=== PATIENT | male | born 2000 | race Caucasian/White ===

== ENCOUNTER 2022-07-24 09:50 | Emergency (ER) | payer OTHER ==
[2022-07-24 10:01] VITALS: BP 128/83
--- NOTE | 2022-07-24 11:37 | ED Physician Documentation ---
PD HPI LOWER EXT INJURY - Stated complaint Stated Complaint: INGROWN BOTH FEET - Chief complaint Chief Complaint: Ext Problem - History obtained from History obtained from: Patient - History of Present Illness PD HPI LOW EXT INJURY LOCATION: Left, Toe (great toe mainly and 3rd toe some.) Type of injury: No: Fall, Twist, Penetrating / stab / GSW Where injury occurred: Home Timing - details: Abrupt onset Improved by: Immobilization Worsened by: Moving. No: Palpating Associated symptoms: Weakness, Numbness, Swelling, Discolored (redness around left great toe nailbed and extending to dorsum of foot/great toe base.) Review of Systems Constitutional: denies: Fever, Chills, Myalgias Eyes: denies: Decreased vision, Photophobia Nose: denies: Rhinorrhea / runny nose, Congestion Throat: denies: Sore throat, Swollen tonsils Respiratory: reports: Dyspnea, Cough GI: reports: Abdominal Pain, Nausea. denies: Vomiting, Constipation, Diarrhea : denies: Dysuria, Frequency Skin: denies: Rash, Lesions PD PAST MEDICAL HISTORY - Past Medical History Cardiovascular: None - Present Medications Home Medications: Ambulatory Orders Medication Instructions Recorded Confirmed Doxycycline Hyclate 100 mg PO BID 5 Days #10 cap 07/24/22 Mupirocin 2% Oint [Bactroban 2% 1 applic TOP TID #15 gm 07/24/22 Oint] - Allergies Allergies/Adverse Reactions: Allergies Allergy/AdvReac Type Severity Reaction Status Date / Time No Known Drug Allergies Allergy Verified 07/24/22 10:01 PD ED PE NORMAL - Vitals Vital signs reviewed: Yes - General General: Alert and oriented X 3, No acute distress - Cardiac Cardiac: RRR, No murmur - Respiratory Respiratory: Clear bilaterally - Abdomen Abdomen: Soft, Non tender, Non distended - Derm Derm: Warm and dry. No: Normal color (left great toe paronychial area and top of 3rd toe baseline with redness and tenderness from prior.) Results - Vitals Vitals: Oxygen O2 Source Room air Procedures - General procedure General procedure: great toe nailbed base with redness and swelling. no drainage. Nails ingrown in corners Scissors used to trim leading corner that was toward to the infection area. Departure - Departure Disposition: 01 Home, Self Care Clinical Impression: Ingrown toenail, Paronychia Cellulitis, toe Qualifiers: Laterality: left Qualified Code(s): L03.032 - Cellulitis of left toe Condition: Stable Record reviewed to determine appropriate education?: Yes Instructions: ED Fingernail Infec Follow-Up: Paulino Doan DPM [Physician No Access] - Prescriptions: Mupirocin 2% Oint [Bactroban 2% Oint] 1 applic TOP TID #15 gm Doxycycline Hyclate 100 mg PO BID 5 Days #10 cap Comments: Wear more loose fitting shoes so there is less pressure on the toes. Soak or cleanse the infected toenails 2-3 times daily for the next several days and apply mupirocin antibiotic ointment. Antibiotics as directed. Anti-inflammatory such as ibuprofen 600 mg 3 times daily for pain. Recheck if infection is not improving well over the next few days with your primary care or a qi specialist (podiatry). There is a 1 up in [place] and I gave you the reference number. Subsequently if this heals up well then you may not necessarily need follow-up. Subsequently be sure to keep your toenails trimmed well so they are not hitting on the ends of your boot. Make sure your boot is fitting properly so your toenails are not jamming. I sent your prescription to the [email or web address] pharmacy. Forms: Activity restrictions Discharge Date/Time: 07/24/22 13:16
[2022-07-24] MEDS ORDERED: MUPIROCIN 2% OINT 1 GM TOP STA (12:20)
[2022-07-24] MEDS ORDERED: IBUPROFEN 600 MG TABLET PO STA (12:20)
[2022-07-24] MEDS ORDERED: DOXYCYCLINE 100 MG TABLET PO STA (12:20)
== END 2022-07-24 13:16 | disposition home or self-care (01) ==
LOC: ED 09:50
DX: L60.0 Ingrowing nail (principal); L03.032 Cellulitis of left toe
CPT/HCPCS: 11765; 99282; A9270

== ENCOUNTER 2024-06-06 08:53 | Outpatient (CLI) | payer OTHER ==
--- NOTE | 2024-06-07 15:31 | Ultrasound Report ---
LIMITED ULTRASOUND OF RIGHT BREAST: 06/06/2024 CLINICAL: Palpable right breast lump. No prior exams were available for comparison. Color flow ultrasound of the right breast retroareolar was performed. [place] scale images of the real- time examination were reviewed. There is mild gynecomastia in the right retroareolar region corresponding to the palpable abnormality . No suspicious mass is seen. IMPRESSION: BENIGN Mild benign gynecomastia is seen in the retroareolar region. Recommend clinical follow-up and workup for causes of gynecomastia. There is no sonographic evidence of malignancy. This exam was interpreted at Station ID: [id number]. Electronically Signed By: Chris [email or web address]:06/06/2024 16:39:13 letter sent: No_Letter ACR BI-RADS Category 2: Benign 3342F BI-RADS CATEGORY: (2) - 2 Unspecified - other recall n/a LATERALITY: (B)
== END 2024-06-06 08:54 | disposition home or self-care (01) ==
LOC: DI 08:53
DX: N62 Hypertrophy of breast (principal)